=== PATIENT | female | born 1990 | race Two or more races ===

== ENCOUNTER 2022-07-25 00:14 | Emergency (ER) | payer OTHER ==
[~2022-07-25] VITALS: Ht 154.9 cm; Wt 59.0 kg
[2022-07-25] MEDS ORDERED: AMOX-277 PO (03:33)
[2022-07-25 03:57] VITALS: BP 144/90
== END 2022-07-25 04:01 | disposition home or self-care (01) ==
LOC: ER 00:14
DX: J02.9 Acute pharyngitis, unspecified (principal); H66.91 Otitis media, unspecified, right ear; Z88.1 Allergy status to other antibiotic agents
CPT/HCPCS: 87070; 87880